=== PATIENT | male | born 1945 | race Caucasian/White ===

== ENCOUNTER 2019-06-30 16:38 | Inpatient (IN) | payer BC, OTHER ==
[2019-06-30] MEDS ORDERED: SODIUM CHLORIDE 2,585 ML IV ONE (16:50)
--- NOTE | 2019-06-30 16:57 | PDOC ---
History of Present Illness - General Chief Complaint: Respiratory Stated Complaint: COUGH, SOB History Source: Patient Exam Limitations: No Limitations - History of Present Illness Initial Comments: 73 yo M with a pmhx of CAD s/p bypass, afib (on Eliquis and ASA) prostate cancer, hypertension, and hyperlipidemia presents to the emergency department worsening dyspnea on exertion with cough and nasal congestion that have occurred concurrently. Per the patient, his symptoms began this past Thursday, appro ximately 4 days ago, and were worsening throughout the week. While walking to [facility], he became acute dyspneic with exertion and was unable to complete the journey. Per the patient, he lives by himself, denies recent travels, denies exposure to COVID-19 individuals, and denies recent sick contacts. Per the patient, he has a scheduled imaging study of his heart next week with his test analyst, but he is unaware of the study's name. Denies the following: fevers, chills, nausea, vomiting, headache, palpitations, chest pain, abdominal pain, dysuria, hematuria, diarrhea, constipation, and leg pain/swelling. Incidentally, the patient describes having a large hematochezia event 5 days ago with a normal BM over the past 2-3 days. He endorses having hemorrhoids. Allergies: NKDA Past History - Past Medical History Allergies/Adverse Reactions: Allergies Allergy/AdvReac Type Severity Reaction Status Date / Time cat dander Allergy Verified 06/30/19 16:39 Home Medications: Ambulatory Orders Atorvastatin Ca [Lipitor] 40 mg PO DAILY 03/20/12 Citalopram Hydrobromide [Celexa -] 40 mg PO DAILY 03/20/12 Ramipril 5 mg PO AM 11/03/13 Alfuzosin HCl [Uroxatral] 10 mg PO DAILY 11/21/14 Hydrochlorothiazide [Hctz -] 12.5 mg PO DAILY 11/21/14 Apixaban [Eliquis] 5 mg PO BID 11/17/17 Gluc Healy/Chondro Healy A/Vit C/Mn [Glucosamine Chondroitin Tab] 1 tab PO DAILY 07/01/19 Metoprolol Succinate 50 mg PO BID 07/01/19 Mirabegron [Myrbetriq] 25 mg PO DAILY 07/01/19 Mirtazapine [Remeron -] 7.5 mg PO HS 07/01/19 Multivitamins [Tab-A-Vit -] 1 tab PO DAILY 07/01/19 Naproxen Sodium 220 mg PO DAILY PRN MDD 220 mg 07/01/19 Pantoprazole Sodium [Protonix] 40 mg PO DAILY #40 tablet. 07/01/19 Anemia: No Asthma: No Cancer: Yes (Prostate) Cardiac Disorders: Yes (CAD) CVA: No COPD: No CHF: No Dementia: No Diabetes: No GI Disorders: No Disorders: No HTN: Yes Hypercholesterolemia: Yes Liver Disease: No Seizures: No Thyroid Disease: No - Surgical History Abdominal Surgery: No Appendectomy: No Cardiac Surgery: Yes (QUADRUPLE BYPASS) Cholecystectomy: No Lung Surgery: No Orthopedic Surgery: Yes (Bilateral Knee Arthroscopy) - Psycho Social/Smoking Cessation Hx Smoking Status: No Smoking History: Never smoked Have you smoked in the past 12 months: No Number of Cigarettes Smoked Daily: 0 Information on smoking cessation initiated: No Hx Alcohol Use: No Drug/Substance Use Hx: No Substance Use Type: Alcohol Hx Substance Use Treatment: No Review of Systems - Review of Systems Able to Perform ROS?: Yes Is the patient limited Italian proficient: No Constitutional: Yes: Weakness. No: Chills, Diaphoresis, Fever HEENTM: Yes: Nose Congestion. No: Eye Pain, Ear Pain, Nose Pain, Throat Pain Respiratory: Yes: Cough, SOB with Exertion. No: SOB at Rest, Hemoptysis Cardiac (ROS): No: Chest Pain, Lightheadedness ABD/GI: No: Constipated, Diarrhea, Nausea, Rectal Bleeding, Vomiting, Tarry Stools : No: Dysuria, Hematuria Musculoskeletal: No: Back Pain, Joint Pain, Neck Pain Integumentary: No: Bruising, Rash Neurological: No: Headache, Numbness Psychiatric: No: Change in Appetite Endocrine: No: Unexplained Weight Loss Hematologic/Lymphatic: Yes: Anemia *Physical Exam - Vital Signs Last Vital Signs Temp Pulse Resp BP Pulse Ox 98.2 F 123 H 20 88/58 L 97 06/30/19 16:38 06/30/19 16:38 06/30/19 16:38 06/30/19 16:38 06/30/19 16:38 - Physical Exam General Appearance: Yes: Nourished, Appropriately Dressed. No: Apparent Distress, Intoxicated HEENT: positive: EOMI, ERIKA, Normal Voice, Symmetrical, Pharynx Normal, Hearing Grossly Normal. negative: Pale Conjunctivae, Scleral Icterus (R), Scleral Icterus (L), Muffled/Hoarse voice, Pharyngeal Erythema, Tonsillar Exudate, Tonsillar Erythema, Nasal Congestion, Rhinorrhea, Sinus Tenderness, Excessive drooling Neck: positive: Trachea midline, Supple. negative: Tender, Lymphadenopathy (R), Lymphadenopathy (L), Tender lateral, Tender midline Respiratory/Chest: positive: Lungs Clear, Normal Breath Sounds. negative: Chest Tender, Respiratory Distress, Accessory Muscle Use Cardiovascular: positive: Regular Rhythm, S1, S2, Tachycardia. negative: Systolic Murmur Gastrointestinal/Abdominal: positive: Normal Bowel Sounds, Flat, Soft. negative: Tender Rectal Exam: positive: normal rectal tone, heme positive stool. negative: decreased tone, hemorrhoids Lymphatic: negative: Adenopathy Musculoskeletal: positive: Normal Inspection. negative: CVA Tenderness, Vertebral Tenderness Extremity: positive: Normal Capillary Refill, Normal Inspection, Normal Range of Motion. negative: Tender, Swelling, Calf Tenderness Integumentary: positive: Normal Color, Dry, Warm. negative: Swelling, Ecchymosis Neurologic: positive: Fully Oriented, Alert, Normal Mood/Affect Heart Score/ECG Review - ECG Intrepretation Comment:: NSR without ST elevation or depression noted on EKG. ED Treatment Course - LABORATORY CBC & Chemistry Diagram: 07/01/19 05:50 07/01/19 05:50 Medical Decision Making - Medical Decision Making 73 yo M with a pmhx of CAD s/p bypass, afib (on Eliquis and ASA) prostate cancer, hypertension, and hyperlipidemia presents to the emergency department worsening dyspnea on exertion with cough and nasal congestion that have occurred concurrently. Initial vitals; Initial Vital Signs Temp Pulse Resp BP Pulse Ox 98.2 F 123 H 20 88/58 L 97 06/30/19 16:38 06/30/19 16:38 06/30/19 16:38 06/30/19 16:38 06/30/19 16:38 Work up: patient presents with PETIT with concurrent cough and congestion ddx: URI vs influenza vs PNA vs ACS Patient unlikely to be a COVID-19 patient given lack of fever and known risk factors including contact with COVID-19 individuals and travel to increased incident areas. Laboratory Tests 06/30/19 06/30/19 06/30/19 16:45 16:45 16:45 WBC 7.1 RBC 2.87 L Hgb 9.2 L Hct 28.5 L D MCV 99.2 H MCH 32.1 MCHC 32.4 RDW 12.1 Plt Count 260 D MPV 7.9 Absolute Neuts (auto) 4.1 Neutrophils % 57.3 Lymphocytes % 20.5 Monocytes % 17.2 H Eosinophils % 4.4 Basophils % 0.6 PT with INR INR VBG pH 7.42 H POC VBG pCO2 40.7 POC VBG pO2 < 49 H VBG HCO3 26.2 VBG O2 Sat (Lyn) 71.7 VBG Base Excess 2.1 H Sodium 137 Potassium 4.1 Chloride 100 Carbon Dioxide 26 Anion Gap 11 BUN 21.0 H Creatinine 1.2 Est GFR (CKD-EPI)AfAm 68.63 Est GFR (CKD-EPI)NonAf 59.21 Random Glucose 109 H Calcium 9.0 Total Bilirubin 1.1 H AST 39 H ALT 22 Alkaline Phosphatase 49 Troponin I Total Protein 6.9 Albumin 3.8 Stool Occult Blood 06/30/19 06/30/19 06/30/19 16:45 17:45 18:10 WBC RBC Hgb Hct MCV MCH MCHC RDW Plt Count MPV Absolute Neuts (auto) Neutrophils % Lymphocytes % Monocytes % Eosinophils % Basophils % PT with INR 16.9 H INR 1.52 H VBG pH POC VBG pCO2 POC VBG pO2 VBG HCO3 VBG O2 Sat (Lyn) VBG Base Excess Sodium Potassium Chloride Carbon Dioxide Anion Gap BUN Creatinine Est GFR (CKD-EPI)AfAm Est GFR (CKD-EPI)NonAf Random Glucose Calcium Total Bilirubin AST ALT Alkaline Phosphatase Troponin I 0.63 H* Total Protein Albumin Stool Occult Blood Positive Patient has positive occult blood troponin 0.63. hemoglobin 9.2, which is significantly lower than his previous lab value 2 years ago The patient was given aspirin 325 mg and atorvastatin 80 mg. A call was placed to cardiology director cloud transformation by community outreach coordinator at approximately 6:25 pm with another call placed out at approximately 6:52 pm. The answering service accepted the call and stated they would relay the information to cardiology. The patient is currently on eliquis, thus will not need heparin for anti- coagulation. Patient to be signed out to Dr. Noel for further care and management. Patient was accepted for admission to [facility] under Dr. Mahoney. 06/30/19 19:06 06/30/19 19:18 Spoke to cardiology. They state that the patient should have all anticoagulation withheld. Advises for echo to be ordered for AM immediately so that it is done and to have q6hr on troponin x2. Patient was endorses to [facility] and accepted for admission The patient to be admitted to telemetry for NSTEMI with lower rectal bleed. EKG: NSR without ST elevations or depressions. incomplete RBBB. CXR without acute process noted. Discharge - Discharge Information Problems reviewed: Yes Clinical Impression/Diagnosis: NSTEMI (non-ST elevated myocardial infarction) Anemia Qualifiers: Anemia type: unspecified type Qualified Code(s): D64.9 - Anemia, unspecified - Follow up/Referral - Patient Discharge Instructions - Post Discharge Activity
--- NOTE | 2019-06-30 17:06 | PDOC ---
Attending Attestation - Resident Resident Name: Jas Velez - ED Attending Attestation I have performed the following: I have examined & evaluated the patient, The case was reviewed & discussed with the resident, I agree w/resident's findings & plan - HPI HPI: 06/30/19 17:06 73 year old male with a significant past medical history of CAD s/p bypass, afib (on Eliquis and ASA) prostate cancer, hypertension, and hyperlipidemia who prese nts to the emergency department p/w progressive dyspnea on exertion, cough and congestion, generalized weakness x 4 days, beginning Thursday yesterday he went to [place] [facility] office for his appt, he was walking and got easily short of breath, which has not occurred previously. no known sick contacts or travel no covid 19 risk factors 06/30/19 17:56 06/30/19 18:04 - Physicial Exam PE: 06/30/19 17:06 Agree with the resident's HPI and PE as documented in the electronic medical record. NAD, malaised appearing, EOMI, PERRL, nl conjunctiva, anicteric; neck supple. lungs clear, +tachycardic, abdomen soft nontender. no rebound, guarding. Back nontender. FAULKNER x4, no focal neuro deficits. No peripheral edema. pale color for ethnicity, WWP. rectal exam by resident 06/30/19 17:59 - Critical Care Time Total Critical Care Time: 30 (NSTEMI) Critical Care Statement: The care of this patient involved high complexity decision making to prevent further life threatening deterioration of the patient's condition and/or to evaluate & treat vital organ system(s) failure or risk of failure. - Medical Decision Making 06/30/19 17:06 Vital Signs Temp Pulse Resp BP Pulse Ox 98.2 F 123 H 20 88/58 L 97 06/30/19 16:38 06/30/19 16:38 06/30/19 16:38 06/30/19 16:38 06/30/19 16:38 Vital signs notable for hypotension tachycardia, no fever orally. No respiratory distress, saturations 97% on room air not septic - no fever rectally here recheck VS. 06/30/19 18:02 ddx. ACS, arrhythmia, PE, dehydration, flu, pna, viral syndrome, GIB, anemia, electrolyte/metabolic derangements. Laboratory results reviewed, no WBC count. However acute anemia is noted, hemoglobin is 9.2, hematocrit is 28.5. Troponin is 0.63, EKG is nonspecific T wave abnormalities, no ST elevations or depressions +trop 0.6- serial trop/area attendant. 06/30/19 18:03 bp improved no longer tachy sinus rhythm here admit to [facility] for NSTEMI/anemia. ASA given no AC as pt already on eliquis, risk of bleeding transfer to [facility] for admit, s/o to Dr Mahoney pt made aware of impression and plan, agreeable with admission, cards cs, serial trop/EKG. CTA recommended, as pt states he has "dilated artery" but unclear location- planned for CT imaging in 1.5 weeks. pt mentioned this detail upon reevaluation at this time. 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 06/30/19 19:14 06/30/19 19:[address] Blank recommended dc'ing eliquis heparin for AC gtt, hold for now serial trop x3, ekg/tele echo in the AM, order now. Heart Score/ECG Review #1 ECG reviewed & interpreted by me at: 17:45 General ECG Interpretation: Sinus Rhythm, Normal Rate, Normal Intervals 06/30/19 18:51 EKG normal sinus rhythm 63 bpm, no interval abnormalities, narrow QRS, ST and T wave segments and morphology normal. Nonspecific T wave abnormalities Discharge - Discharge Information Problems reviewed: Yes Clinical Impression/Diagnosis: NSTEMI (non-ST elevated myocardial infarction) Anemia Qualifiers: Anemia type: unspecified type Qualified Code(s): D64.9 - Anemia, unspecified Condition: Guarded Disposition: AGAINST MEDICAL ADVICE - Admission Yes - Follow up/Referral - Patient Discharge Instructions - Post Discharge Activity
[2019-06-30 17:40] LABS: BASO % 0.6 % (0-2.0); EOS % 4.4 % (0-4.5); HEMATOCRIT 28.5 % (35.4-49); HEMOGLOBIN 9.2 GM/dl (11.7-16.9); LYMPH % 20.5 % (8-40); MCH 32.1 pg (25.7-33.7); MCHC 32.4 g/dl (32.0-35.9); MEAN CELL VOLUME 99.2 fl (80-96); MEAN PLT VOLUME 7.9 fl (7.5-11.1); MONO % 17.2 % (3.8-10.2); NEUT % 57.3 % (42.8-82.8); PLATELET COUNT 260 K/MM3 (134-434); RBC 2.87 M/mm3 (4.00-5.60); RDW 12.1 % (11.9-15.9); WHITE BLOOD COUNT 7.1 K/mm3 (4.0-10.8)
[2019-06-30 17:56] LABS: ALBUMIN 3.8 g/dl (3.4-5.0); BILIRUBIN,TOTAL 1.1 mg/dl (0.2-1); CREATININE 1.2 mg/dl (0.55-1.3); POTASSIUM 4.1 mmol/L (3.5-5.1); TOT PROT 6.9 g/dl (6.4-8.2)
[2019-06-30 18:13] LABS: INR 1.52 (0.82-1.09); PROTHROMBIN TIME (PATIENT) 16.9 SEC (10.2-13.0)
[2019-06-30] MEDS ORDERED: ATORVASTATIN CA 80 MG TABLET (FP) PO ONE (18:14)
[2019-06-30] MEDS ORDERED: ASPIRIN 325 MG TABLET PO ONE (18:14)
[2019-06-30] MEDS ORDERED: ASPIRIN 325 MG TABLET ONE (18:28)
[2019-06-30] MEDS ORDERED: ATORVASTATIN CA 80 MG TABLET (FP) ONE (18:28)
[2019-06-30 18:36] LABS: VENOUS PC02 40.7 mmHg (38-52); VENOUS PH 7.42 (7.31-7.41)
[2019-06-30 18:46] LABS: VENOUS PO2 < 49 mmHg (28-48)
--- NOTE | 2019-06-30 19:53 | HP ---
CHIEF COMPLAINT: dyspnea on exertion PCP: Dr. Ivan HISTORY OF PRESENT ILLNESS: 73M w/ pmhx of CAD s/p bypass, afib (on Eliquis), prostate cancer (s/p RT now in remission), HTN/HLD presents to the ED for complaints of worsening dyspnea on exertion with cough and nasal congestion that have occurred concurrently. States he started noticing his symptoms on Thursday as he was walking up a hill to get into his house even though he was able to do this daily with no problem in the past. Also admits to generalized weakness x4 days. Of note, he states these symptoms started a day after having profuse bright red bloody diarrhea on Thursday. Says the bleeding started during the day and carried onto the night. Admits to hx of hemorrhoids in the past with bloody stool, but not as bad as Thursday's episode. Denies hx of anemia or ever needing blood transfusion in the past. On Thursday, he took an anti-diarrheal medication after which he hadn't had a bowel movement until today. Last BM today was normal brown stool, but 40 min later he had another episode of bright red diarrhea. Last colonoscopy was 2+ years ago that was negative, per patient. States he's gotten 3 total colonoscopies in the past - 2nd colonoscopy polyps were removed, but were apparent benign. 3rd colonoscopy, he had a hx of bloody stools, but he was told it was due to his hemorrhoids. Last endoscopy was also 2+ years ago at that same time after which he was told to take Prilosec. His GI doctor is Dr. Rush Cuevas ([facility]) He was started on Eliquis after his most recent endoscopy/colonoscopy for afib by his [employer] officer, Dr. Nelson. ER course was notable for: (1) Afebrile, HR 123, BP 88/58 --> 105/68, 99% RA (2) H/H 9.2/28.5, Lac 2.2, TBili 1.2, AST/ALT 39/22, Trop 0.63. FOBT+ (3) ASA 325, Lipitor 80, NS given in ED. Cardio consulted. Recent Travel: Denies PAST MEDICAL HISTORY: As per HPI PAST SURGICAL HISTORY: CABG b/l arthroscopic knee sinus surgeries b/l cataract sx FAMILY HISTORY: Mother- breast cancer w/ lung mets Father- kidney ca Brother- prostate ca Brother- CAD No fam hx of VT/stroke Social History: Smoking: Former smoker, quit 1978 Alcohol: Drinks ~2-3 glasses of vodka on the weekends Drugs: Denies Allergies cat dander Allergy (Verified 06/30/19 16:39) HOME MEDICATIONS: Home Medications - RECONCILED Generic Name Dose Route Start Last Admin Trade Name Freq PRN Reason Stop Dose Admin Atorvastatin Calcium 40 mg 07/01/19 00:31 Lipitor - PO HS AZUL Citalopram Hydrobromide 40 mg 07/01/19 10:00 Celexa - PO DAILY AZUL Hydrochlorothiazide 12.5 mg 07/01/19 10:00 Hctz - PO DAILY [facility] Metoprolol Succinate 50 mg 07/01/19 01:15 07/01/19 01:00 Toprol Xl - PO 50 mg BID AZUL Administration Mirtazapine 7.5 mg 07/01/19 01:06 07/01/19 01:49 Remeron - PO 7.5 mg HS [facility] Administration Non-Formulary Medication 25 mg 07/01/19 01:06 Mirabegron [Myrbetriq] PO DAILY [facility] Ramipril 5 mg 07/01/19 07:00 Altace - PO AM [facility] Tamsulosin HCl 0.4 mg 07/01/19 08:30 Flomax - PO DAILY@0830 [facility] REVIEW OF SYSTEMS CONSTITUTIONAL: generalized weakness Absent: fever, chills, diaphoresis, , malaise, loss of appetite, weight change HEENT: Absent: rhinorrhea, nasal congestion, throat pain, throat swelling, difficulty swallowing, mouth swelling, ear pain, eye pain, visual changes CARDIOVASCULAR: Absent: chest pain, syncope, palpitations, irregular heart rate, lightheadedness, peripheral edema RESPIRATORY: cough, shortness of breath, dyspnea with exertion Absent: orthopnea, wheezing, stridor, hemoptysis GASTROINTESTINAL: hematochezia Absent: abdominal pain, abdominal distension, nausea, vomiting, diarrhea, constipation, melena, GENITOURINARY: Absent: dysuria, frequency, urgency, hesitancy, hematuria, flank pain, genital pain MUSCULOSKELETAL: Absent: myalgia, arthralgia, joint swelling, back pain, neck pain SKIN: Absent: rash, itching, pallor HEMATOLOGIC/IMMUNOLOGIC: Absent: easy bleeding, easy bruising, lymphadenopathy, frequent infections ENDOCRINE: Absent: unexplained weight gain, unexplained weight loss, heat intolerance, cold intolerance NEUROLOGIC: Absent: headache, focal weakness or paresthesias, dizziness, unsteady gait, seizure, mental status changes, bladder or bowel incontinence PSYCHIATRIC: Absent: anxiety, depression, suicidal or homicidal ideation, hallucinations. PHYSICAL EXAMINATION Vital Signs - 24 hr 06/30/19 06/30/19 16:38 18:03 Temperature 98.2 F 98.3 F Pulse Rate 123 H Pulse Rate [ 64 Left Apical] Respiratory 20 18 Rate Blood Pressure 88/58 L Blood Pressure 105/68 [Left Arm] O2 Sat by Pulse 97 99 Oximetry (%) GENERAL: Pleasant, well-appearing male. NAD. AAOx3. HEENT: AT/NC. EOMI. MMM. NECK: Normal range of motion, supple without lymphadenopathy, JVD, or masses. LUNGS: CTA B/L. No wheezes or rales noted. Symmetric chest rise. HEART: RRR. Normal S1, S2. No murmurs noted. ABDOMEN: Soft, NT/ND. Normoactive bowel sounds in all 4Qs. GI: No palpable internal/external hemorrhoids on ASHANTI. No bloody stool noted. Normal rectal tone. MUSCULOSKELETAL: Normal range of motion at all joints. No bony deformities or tenderness. No CVA tenderness. EXTREMITIES: 1+ pitting edema noted on b/l extremities. 2+ dorsalis pedis pulses. NEUROLOGICAL: Cranial nerves II-XII intact. Normal speech. PSYCHIATRIC: Cooperative. Good eye contact. Appropriate mood and affect. SKIN: Warm, dry, normal turgor, no rashes or lesions noted, normal capillary refill. CBCD WBC 7.1 K/mm3 (4.0-10.8) 06/30/19 16:45 RBC 2.87 M/mm3 (4.00-5.60) L 06/30/19 16:45 Hgb 9.2 GM/dl (11.7-16.9) L 06/30/19 16:45 Hct 28.5 % (35.4-49) L D 06/30/19 16:45 MCV 99.2 fl (80-96) H 06/30/19 16:45 MCHC 32.4 g/dl (32.0-35.9) 06/30/19 16:45 RDW 12.1 % (11.9-15.9) 06/30/19 16:45 Plt Count 260 K/MM3 (134-434) D 06/30/19 16:45 MPV 7.9 fl (7.5-11.1) 06/30/19 16:45 CMP Sodium 137 mmol/L (136-145) 06/30/19 16:45 Potassium 4.1 mmol/L (3.5-5.1) 06/30/19 16:45 Chloride 100 mmol/L (98-107) 06/30/19 16:45 Carbon Dioxide 26 mmol/L (21-32) 06/30/19 16:45 Anion Gap 11 MMOL/L (8-16) 06/30/19 16:45 BUN 21.0 mg/dl (7-18) H 06/30/19 16:45 Creatinine 1.2 mg/dl (0.55-1.3) 06/30/19 16:45 Calcium 9.0 mg/dl (8.5-10) 06/30/19 16:45 Total Bilirubin 1.1 mg/dl (0.2-1) H 06/30/19 16:45 AST 39 U/L (15-37) H 06/30/19 16:45 ALT 22 U/L (13-61) 06/30/19 16:45 Alkaline Phosphatase 49 U/L (45-117) 06/30/19 16:45 Total Protein 6.9 g/dl (6.4-8.2) 06/30/19 16:45 Albumin 3.8 g/dl (3.4-5.0) 06/30/19 16:45 ASSESSMENT/PLAN: 73M w/ pmhx of CAD s/p bypass, afib (on Eliquis), prostate cancer (s/p RT now in remission), HTN/HLD presents to the ED for complaints of worsening dyspnea on exertion with cough admitted for tropinemia, r/o ACS #Tropinemia; likely 2/2 ? NSTEMI vs. demand ischemia, r/o ACS -No active chest pain. EKG showed NSR, QTc 503 ms, no ST-T changes or TWI -Initial trops 0.63 --> 0.77; cont to trend Q6H until peak -ASA 325, Lipitor 80 given in ED -Cardiology consulted; recommend to hold home Eliquis. Will decide on starting heparin gtt in AM as pt's tropinemia is likely demand. -Echo ordered -tele monitoring #Anemia; likely 2/2 GI bleed. No known hx of anemia. -FOBT positive, Hgb 9.2 --> 8.4; cont to trend CBC and transfuse PRN if Hgb <8 -Hold home Eliquis in setting of GI bleed -GI consulted -Iron studies #Afib; Rate-controlled and currently in NSR. HR 65 -Hold home Eliquis given GI bleed Cont home med: Metoprolol Succinate 50 BID #Hx of CAD; s/p CABG #Prostate Ca; s/p radiation therapy, now in remission. Outpatient urology follow up. Cont home med: Myrbetriq 25, Uroxatral 10 #HTN/HLD; Cont home med: Lipitor 40, Metoprolol Succinate 50 BID, HCTZ 12.5 QD, Ramipril 5, #Ppx DVT: SCDs GI: Protonix 40 BID IVP #FEN -no IVf -recheck lytes in AM -NPO Dispo -admit to tele Visit type - Emergency Visit Emergency Visit: Yes ED Registration Date: 06/30/19 Care time: The patient presented to the Emergency Department on the above date and was hospitalized for further evaluation of their emergent condition. - New Patient This patient is new to me today: Yes Date on this admission: 07/01/19 - Critical Care Critical Care patient: No ATTENDING PHYSICIAN STATEMENT I saw and evaluated the patient. I reviewed the resident's note and discussed the case with the resident. I agree with the resident's findings and plan as documented. SUBJECTIVE: OBJECTIVE: ASSESSMENT AND PLAN:
--- NOTE | 2019-06-30 20:27 | PN ---
Teaching Attending Note Name of Resident: Dominique Alicea ATTENDING PHYSICIAN STATEMENT I saw and evaluated the patient. I reviewed the resident's note and discussed the case with the resident. I agree with the resident's findings and plan as documented. SUBJECTIVE: Patient transferred from [facility] ER to [facility]. He is a 73 year old man with a PMH of CAD s/p bypass, Afib (on Eliquis and ASA), Prostate cancer, Hypertension, and Hyperlipidemia who presented to [facility] ER with worsening dyspnea on exertion, cough and nasal congestion for about 4 days. While walking to [facility] dental offices, he became acute dyspneic with exertion and was unable to complete the journey. He lives alone, denies recent travels, denies exposure to COVID-19 individuals, and denies recent sick contacts. He has a scheduled imaging study of his heart next week with his cyber intelligence analyst, but he is unaware of the study's name. Denies fevers, chills, nausea, vomiting, headache, palpitations, chest pain, abdominal pain, dysuria, hematuria, diarrhea, constipation, and leg pain/swelling. Incidentally, the patient describes having a large hematochezia event 5 days ago with a normal BM over the past 2-3 days. Says he has hemorrhoids. Denies alcohol, tobacco or illicit drug use. No sick contacts or recent travels. Upon arrival at [facility] he offers no symptoms and is in no acute distress. The staff at [facility] ER discussed his care with a cyber intelligence analyst after elevated troponin was noted. OBJECTIVE: Alert Vital Signs Period Temp Pulse Resp BP Sys/Rios Pulse Ox Last 24 Hr 97.8 F-98.4 F 61-123 18-20 88-132/54-82 96-99 HEENT: No Jaundice, eye redness or discharge, PERRLA, EOMI. Normocephalic, atraumatic. External ears are normal and hearing is grossly intact. No nasal discharge. Neck: Supple, nontender. No palpable adenopathy or thyromegaly. No JVD Chest: Good effort. Clear to auscultation and percussion. Heart: Regular. No S3, rub or murmur Abdomen: Not distended, soft, nontender and no HSM. No rebound or guarding. Normal bowel sounds. Ext: Peripheral pulses intact. No leg edema. No hemorrhoids noted on rectal exam. Skin: Warm and dry. No petechiae, rash or ecchymosis. Neuro: Alert. Oriented x3. CN 2-12 grossly intact. Sensation grossly intact in all four extremities and DTR are symmetric. Psych: Appropriate mood and affect. Good insight. Current Medications Generic Name Dose Route Start Last Admin Trade Name Freq PRN Reason Stop Dose Admin Atorvastatin Calcium 40 mg 07/01/19 00:31 Lipitor - PO HS [facility] Citalopram Hydrobromide 40 mg 07/01/19 10:00 Celexa - PO DAILY [facility] Hydrochlorothiazide 12.5 mg 07/01/19 10:00 Hctz - PO DAILY [facility] Metoprolol Succinate 50 mg 06/30/19 23:45 Toprol Xl - PO BID [facility] Mirtazapine 7.5 mg 07/01/19 00:31 Remeron - PO HS [facility] Non-Formulary Medication 25 mg 07/01/19 00:31 Mirabegron [Myrbetriq] PO DAILY [facility] Pantoprazole Sodium 40 mg 07/01/19 00:31 Protonix - PO BID [facility] Ramipril 5 mg 07/01/19 07:00 Altace - PO AM [facility] Tamsulosin HCl 0.4 mg 07/01/19 08:30 Flomax - PO DAILY@0830 [facility] Home Medications Medication Instructions Recorded Atorvastatin Ca [Lipitor] 40 mg PO DAILY 03/20/12 Citalopram Hydrobromide [Celexa -] 40 mg PO DAILY 03/20/12 Mirtazapine [Remeron -] 7.5 mg PO HS 11/03/13 Ramipril 5 mg PO AM 11/03/13 Alfuzosin HCl [Uroxatral] 10 mg PO DAILY 11/21/14 Hydrochlorothiazide [Hctz -] 12.5 mg PO DAILY 11/21/14 Mirabegron [Myrbetriq] 25 mg PO DAILY 11/21/14 Apixaban [Eliquis] 5 mg PO BID 11/17/17 Metoprolol Succinate 50 mg PO BID 06/30/19 Abnormal Lab Results 06/30/19 06/30/19 06/30/19 16:45 16:45 16:45 RBC 2.87 L Hgb 9.2 L Hct 28.5 L D MCV 99.2 H Monocytes % 17.2 H PT with INR INR VBG pH 7.42 H POC VBG pO2 < 49 H VBG Base Excess 2.1 H BUN 21.0 H Random Glucose 109 H Lactic Acid Total Bilirubin 1.1 H AST 39 H Troponin I 06/30/19 06/30/19 06/30/19 16:45 16:45 17:45 RBC Hgb Hct MCV Monocytes % PT with INR 16.9 H INR 1.52 H VBG pH POC VBG pO2 VBG Base Excess BUN Random Glucose Lactic Acid 2.2 H* Total Bilirubin AST Troponin I 0.63 H* 07/01/19 00:05 RBC Hgb Hct MCV Monocytes % PT with INR INR VBG pH POC VBG pO2 VBG Base Excess BUN Random Glucose Lactic Acid Total Bilirubin AST Troponin I 0.77 H* ASSESSMENT AND PLAN: 1. NSTEMI?/GI bleeding - Initial troponin was elevated but EKG showed NSR with rate of 63/minute and no significant ST-T wave changes. Stool guaiac was positive, but no fresh blood noted on rectal examination. No acute abnormality on CXR. Cardiology consulted - more likely demand ischemia. Will trend troponin and get ECHO. Hold Eliquis for bleeding and monitor HCT q 6 hours. Will continue comprehensive care for all of patients comorbid conditions. 2. Hypertension - Restart suitable outpatient antihypertensive drugs when clinically appropriate. Revise regimen to ensure [id number] excellent BP control and group counselor patient on the injurious effects of uncontrolled hypert ension. Nonpharmacologic measures to control hypertension like weight loss, salt restriction and exercise discussed. Importance of adherence to treatment regimen and attainment of normotension emphasized. 3. DVT prophylaxis - SCD 4. Advance directives - Full code
[2019-07-01 00:25] VITALS: BMI 27.5
[2019-07-01] MEDS ORDERED: PATIENT'S OWN MEDICATION (NON-FORMULARY) (Mirabegron [Myrbetriq] 25 MG) PO SCH ×3 (00:31→10:00)
[2019-07-01] MEDS ORDERED: PANTOPRAZOLE 40 MG TABLET PO SCH ×2 (00:31→10:00)
[2019-07-01] MEDS ORDERED: MIRTAZAPINE 15 MG TABLET (FP) PO SCH ×3 (00:31→22:00)
[2019-07-01] MEDS ORDERED: ATORVASTATIN CA 40 MG TABLET (FP) PO SCH ×2 (00:31→22:00)
[2019-07-01 01:36] LABS: HEMATOCRIT 24.5 % (35.4-49); HEMOGLOBIN 8.4 GM/dL (11.7-16.9); MCH 33.9 pg (25.7-33.7); MCHC 34.2 g/dl (32.0-35.9); MEAN PLT VOLUME 8.1 fl (7.5-11.1); PLATELET COUNT 198 K/MM3 (134-434); RBC 2.48 M/mm3 (4.00-5.60); RDW 12.9 % (11.9-15.9)
[2019-07-01 06:59] LABS: BASO % 0.5 % (0-2.0); EOS % 5.9 % (0-4.5); HEMATOCRIT 24.6 % (35.4-49); HEMOGLOBIN 8.2 GM/dL (11.7-16.9); LYMPH % 23.6 % (8-40); MCH 33.3 pg (25.7-33.7); MCHC 33.4 g/dl (32.0-35.9); MEAN CELL VOLUME 99.5 fl (80-96); MEAN PLT VOLUME 8.1 fl (7.5-11.1); MONO % 15.5 % (3.8-10.2); NEUT % 54.5 % (42.8-82.8); PLATELET COUNT 199 K/MM3 (134-434); RBC 2.48 M/mm3 (4.00-5.60); RDW 13.3 % (11.9-15.9); WHITE BLOOD COUNT 6.4 K/mm3 (4.0-10.0)
[2019-07-01] MEDS ORDERED: RAMIPRIL 5 MG CAPSULE (FP) PO SCH (07:00)
[2019-07-01 07:26] LABS: ALBUMIN 2.9 g/dl (3.4-5.0); BILIRUBIN,TOTAL 0.9 mg/dL (0.2-1); BLOOD UREA NITROGEN 16.7 mg/dL (7-18); MAGNESIUM 1.7 mg/dL (1.8-2.4); POTASSIUM 3.4 mmol/L (3.5-5.1); TOT PROT 5.8 g/dl (6.4-8.2)
[2019-07-01] MEDS ORDERED: TAMSULOSIN HCL 0.4 MG CAP PO SCH (08:30)
[2019-07-01] MEDS ORDERED: POTASSIUM CHLORIDE TABS 20 MEQ TABLET.ER (FP) PO ONE (08:48)
[2019-07-01] MEDS ORDERED: MAGNESIUM SULF 50% (8.12 MEQ/2 ML-1 GM VIAL) IVPB ONE ×2 (08:48→11:02)
--- NOTE | 2019-07-01 09:05 | PN ---
Physical Exam: SUBJECTIVE: Patient seen and examined at bedside. Reports that he has been feeling fatigued for around 1 week with reported dyspnea on exertion. States that he has had several episodes of bloody bowel movements over the course of this week starting Thursday. Last episode being yesterday. Patient told me he had a colonoscopy around 2 years ago and that he has known hemorrhoids. He was told he had bleeding hemorrhoids in the past. Currently denies chest pain, SOB, nausea, vomiting, diarrhea, fevers, chills. Patient does endorse a mild non-productive cough. OBJECTIVE: Vital Signs Period Temp Pulse Resp BP Sys/Rios Pulse Ox Last 24 Hr 97.8 F-98.4 F 59-123 16-20 88-132/54-82 96-99 GENERAL: A&Ox3, no acute distress EYES: PERRLA, EOMI ENT: Moist mucus membranes, oropharynx normal without erythema LUNGS: CTA, no wheezes HEART: RRR, no murmurs ABDOMEN: Soft, nontender, BS present EXTREMITIES: 2+ pulses, no edema. NEUROLOGICAL: Cranial nerves II-XII intact. No focal deficits noted on exam. Laboratory Results - last 24 hr 06/30/19 06/30/19 06/30/19 16:45 16:45 16:45 WBC 7.1 RBC 2.87 L Hgb 9.2 L Hct 28.5 L D MCV 99.2 H MCH 32.1 MCHC 32.4 RDW 12.1 Plt Count 260 D MPV 7.9 Absolute Neuts (auto) 4.1 Neutrophils % 57.3 Lymphocytes % 20.5 Monocytes % 17.2 H Eosinophils % 4.4 Basophils % 0.6 Nucleated RBC % PT with INR INR VBG pH 7.42 H POC VBG pCO2 40.7 POC VBG pO2 < 49 H VBG HCO3 26.2 VBG O2 Sat (Lyn) 71.7 VBG Base Excess 2.1 H Sodium 137 Potassium 4.1 Chloride 100 Carbon Dioxide 26 Anion Gap 11 BUN 21.0 H Creatinine 1.2 Est GFR (CKD-EPI)AfAm 68.63 Est GFR (CKD-EPI)NonAf 59.21 Random Glucose 109 H Lactic Acid Calcium 9.0 Phosphorus Magnesium Iron TIBC Iron Saturation Unsaturated IBC Ferritin Total Bilirubin 1.1 H AST 39 H ALT 22 Alkaline Phosphatase 49 Troponin I Total Protein 6.9 Albumin 3.8 Vitamin B12 Serum Folate Stool Occult Blood Influenza A (Rapid) Influenza B (Rapid) Blood Type Antibody Screen 06/30/19 06/30/19 06/30/19 16:45 16:45 17:30 WBC RBC Hgb Hct MCV MCH MCHC RDW Plt Count MPV Absolute Neuts (auto) Neutrophils % Lymphocytes % Monocytes % Eosinophils % Basophils % Nucleated RBC % PT with INR INR VBG pH POC VBG pCO2 POC VBG pO2 VBG HCO3 VBG O2 Sat (Lyn) VBG Base Excess Sodium Potassium Chloride Carbon Dioxide Anion Gap BUN Creatinine Est GFR (CKD-EPI)AfAm Est GFR (CKD-EPI)NonAf Random Glucose Lactic Acid 2.2 H* Calcium Phosphorus Magnesium Iron TIBC Iron Saturation Unsaturated IBC Ferritin Total Bilirubin AST ALT Alkaline Phosphatase Troponin I 0.63 H* Total Protein Albumin Vitamin B12 Serum Folate Stool Occult Blood Influenza A (Rapid) Negative Influenza B (Rapid) Negative Blood Type Antibody Screen 06/30/19 06/30/19 06/30/19 17:45 18:10 18:20 WBC RBC Hgb Hct MCV MCH MCHC RDW Plt Count MPV Absolute Neuts (auto) Neutrophils % Lymphocytes % Monocytes % Eosinophils % Basophils % Nucleated RBC % PT with INR 16.9 H INR 1.52 H VBG pH POC VBG pCO2 POC VBG pO2 VBG HCO3 VBG O2 Sat (Lyn) VBG Base Excess Sodium Potassium Chloride Carbon Dioxide Anion Gap BUN Creatinine Est GFR (CKD-EPI)AfAm Est GFR (CKD-EPI)NonAf Random Glucose Lactic Acid Calcium Phosphorus Magnesium Iron TIBC Iron Saturation Unsaturated IBC Ferritin Total Bilirubin AST ALT Alkaline Phosphatase Troponin I Total Protein Albumin Vitamin B12 Serum Folate Stool Occult Blood Positive Influenza A (Rapid) Influenza B (Rapid) Blood Type A POSITIVE Antibody Screen Negative 06/30/19 06/30/19 07/01/19 18:22 20:45 00:05 WBC RBC Hgb Hct MCV MCH MCHC RDW Plt Count MPV Absolute Neuts (auto) Neutrophils % Lymphocytes % Monocytes % Eosinophils % Basophils % Nucleated RBC % PT with INR INR VBG pH POC VBG pCO2 POC VBG pO2 VBG HCO3 VBG O2 Sat (Lyn) VBG Base Excess Sodium Potassium Chloride Carbon Dioxide Anion Gap BUN Creatinine Est GFR (CKD-EPI)AfAm Est GFR (CKD-EPI)NonAf Random Glucose Lactic Acid 1.0 Calcium Phosphorus Magnesium Iron TIBC Iron Saturation Unsaturated IBC Ferritin Total Bilirubin AST ALT Alkaline Phosphatase Troponin I 0.77 H* Total Protein Albumin Vitamin B12 Serum Folate Stool Occult Blood Influenza A (Rapid) Influenza B (Rapid) Blood Type A POSITIVE Antibody Screen 07/01/19 07/01/19 07/01/19 00:05 05:50 05:50 WBC 7.0 6.4 RBC 2.48 L 2.48 L Hgb 8.4 L 8.2 L Hct 24.5 L 24.6 L MCV 99.0 H 99.5 H MCH 33.9 H 33.3 MCHC 34.2 33.4 RDW 12.9 13.3 Plt Count 198 199 MPV 8.1 8.1 Absolute Neuts (auto) 3.5 Neutrophils % 54.5 Lymphocytes % 23.6 Monocytes % 15.5 H Eosinophils % 5.9 H Basophils % 0.5 Nucleated RBC % 0 PT with INR INR VBG pH POC VBG pCO2 POC VBG pO2 VBG HCO3 VBG O2 Sat (Lyn) VBG Base Excess Sodium 141 Potassium 3.4 L Chloride 107 Carbon Dioxide 25 Anion Gap 9 BUN 16.7 Creatinine 1.0 Est GFR (CKD-EPI)AfAm 85.55 Est GFR (CKD-EPI)NonAf 73.82 Random Glucose 81 Lactic Acid Calcium 8.0 L Phosphorus 4.0 Magnesium 1.7 L Iron TIBC Iron Saturation Unsaturated IBC Ferritin Total Bilirubin 0.9 AST 30 ALT 21 Alkaline Phosphatase 49 Troponin I Total Protein 5.8 L Albumin 2.9 L Vitamin B12 Serum Folate Stool Occult Blood Influenza A (Rapid) Influenza B (Rapid) Blood Type Antibody Screen 07/01/19 07/01/19 07/01/19 05:50 05:50 05:50 WBC RBC Hgb Hct MCV MCH MCHC RDW Plt Count MPV Absolute Neuts (auto) Neutrophils % Lymphocytes % Monocytes % Eosinophils % Basophils % Nucleated RBC % PT with INR INR VBG pH POC VBG pCO2 POC VBG pO2 VBG HCO3 VBG O2 Sat (Lyn) VBG Base Excess Sodium Potassium Chloride Carbon Dioxide Anion Gap BUN Creatinine Est GFR (CKD-EPI)AfAm Est GFR (CKD-EPI)NonAf Random Glucose Lactic Acid Calcium Phosphorus Magnesium Iron 45 L TIBC 292 Iron Saturation 15 L Unsaturated IBC 247 Ferritin 52.5 Total Bilirubin AST ALT Alkaline Phosphatase Troponin I 0.61 H* Total Protein Albumin Vitamin B12 436 Serum Folate 30 H Stool Occult Blood Influenza A (Rapid) Influenza B (Rapid) Blood Type Antibody Screen Active Medications Generic Name Dose Route Start Last Admin Trade Name Freq PRN Reason Stop Dose Admin Atorvastatin Calcium 40 mg 07/01/19 00:31 Lipitor - PO HS [facility] Citalopram Hydrobromide 40 mg 07/01/19 10:00 Celexa - PO DAILY [facility] Hydrochlorothiazide 12.5 mg 07/01/19 10:00 Hctz - PO DAILY [facility] Magnesium Sulfate 1 gm 07/01/19 08:48 Magnesium Sulfate IVPB 07/01/19 08:49 ONCE ONE Metoprolol Succinate 50 mg 07/01/19 01:15 07/01/19 01:00 Toprol Xl - PO 50 mg BID [facility] Administration Mirtazapine 7.5 mg 07/01/19 01:06 07/01/19 01:49 Remeron - PO 7.5 mg HS [facility] Administration Non-Formulary Medication 25 mg 07/01/19 01:06 Mirabegron [Myrbetriq] PO DAILY [facility] Pantoprazole Sodium 40 mg 07/01/19 10:00 Protonix Iv IVPUSH BID [facility] Potassium Chloride 40 meq 07/01/19 08:48 K-Dur - PO 07/01/19 08:49 ONCE ONE Ramipril 5 mg 07/01/19 07:00 07/01/19 06:36 Altace - PO 5 mg AM [facility] Administration Tamsulosin HCl 0.4 mg 07/01/19 08:30 Flomax - PO DAILY@0830 [facility] ASSESSMENT/PLAN: This is a 73 year old male with a history of coronary artery disease s/p 4 vessel CABG, atrial fibrillation on eliquis, prostate cancers s/p radiation therapy 7-8 years ago, hypertension and hyperlipidemia who presented to the ED with fatigue, dyspnea on exertion, and hematochezia #Lower Gastrointestinal Bleed: likely hemorrhoidal source as per patient history, however patient is now anemic with signs of cardiac demand ischemia -last colonoscopy 2 years ago, history of hemorrhoids -keep NPO except sips of water with meds -hold anticoagulation at present moment -would opt to keep transfusion threshold >8g/dl as patient has concomitant stable coronary artery disease -lactated ringers @ 100cc/hr 1 bag for volume -GI consulted, plan for endoscopy thursday -hold eliquis for now -continue to monitor hgb once today and again tomorrow AM -monitor BP -protonix 40 IV BID #Troponinemia: based on fast peak in setting of anemia and GI bleeding, suspect this could be demand cardiac ischemia -EKG NSR with prolonged QT (497), repeat showed sinus rhythm with several premature atrial complexes and prolonged QT (503) -monitor on tele -trops peaked at 0.61 (0.63 -> 0.77 -> 0.61) -cardiology consulted -echo pending -careful with QT prolonging agents, decreased citalopram to 20mg, will need to follow with PCP/psychiatrist about dosing/medication regimen -aspirin given in ED, hold at present as patient is anemic and being worked up for GI bleed -per cardiology, plan for outpatient stress test #Prolonged QT: 503 on latest EKG -reduced dose of home citalopram to 20mg as a precaution, will need to follow with PCP/psychiatrist #Anemia: most likely this is a result of GI bleeding, back in 2017 hgb was normal. Iron deficiency suspected as TIBC -corrected retic count 2.16 -MCV high, RDW normal (does not suggest sole iron deficiency) -iron saturation is 15 -hemoglobin transfusion threshold 8 in GI bleed with concomitant coronary artery disease #Lactic Acidosis: likely 2/2 anemia and decreased tissue oxygenation/demand -resolved #Hypokalemia: 3.4 today -will replete with 40 PO KCl #Hypomagnesemia: slightly low today, replete with 1 gm IV #Atrial Fibrillation: currently in sinus rhythm -eliquis held due to GI bleed -continue metoprolol XL 50 BID #Hypertension: presented hypotensive, currently normotensive, would need careful BP monitoring on tele in setting of GI bleed -continue toprol XL 50 BID -continue HCTZ 12.5 daily #Hyperlipidemia: chronic -continue atorvastatin 40mg daily #FEN -will give 1 bag lactated ringers @ 100cc/hr for volume expansion, will reassess before bag finishes to see if rate needs adjustment/discontinuation of drip -NPO for now except meds -replete electrolytes #Prophylaxis -SCD prophylaxis in setting of GI bleed #Disposition -admit telemetry, anticipate DC in 72 hours if patient remains stable - patient may AMA Visit type - Emergency Visit Emergency Visit: No - New Patient This patient is new to me today: Yes Date on this admission: 07/01/19 - Critical Care Critical Care patient: No ATTENDING PHYSICIAN STATEMENT I saw and evaluated the patient. I reviewed the resident's note and discussed the case with the resident. I agree with the resident's findings and plan as documented. SUBJECTIVE: OBJECTIVE: ASSESSMENT AND PLAN:
[2019-07-01 09:08] LABS: RETICULOCYTES 3.63 % (0.5-1.5)
[2019-07-01] MEDS ORDERED: LACTATED RINGERS SOLUTION 1,000 ML/1,000 ML INFUS.BAG IV SCH (09:15)
--- NOTE | 2019-07-01 09:17 | CON.CARD ---
Cardiology Consult (text) - Consultation Consultation Note: Mr. Schwab is a patient of Dr. Nelson [facility]. I have notified our [facility] who will consult here. Patient is currently CP free and hemodynamically stable.
[2019-07-01] MEDS ORDERED: PANTOPRAZOLE SODIUM 40 MG VIAL IVPUSH SCH (10:00)
[2019-07-01] MEDS ORDERED: CITALOPRAM HYDROBROMIDE 20 MG TABLET PO SCH ×2 (10:00)
[2019-07-01] MEDS ORDERED: HYDROCHLOROTHIAZIDE 12.5 MG CAPSULE (FP) PO SCH (10:00)
--- NOTE | 2019-07-01 10:37 | EKG ---
Test Reason : Blood Pressure : / mmHG Vent. Rate : 063 BPM Atrial Rate : 063 BPM P-R Int : 186 ms QRS Dur : 090 ms QT Int : 486 ms P-R-T Axes : 001 003 023 degrees QTc Int : 497 ms POOR DATA QUALITY, INTERPRETATION MAY BE ADVERSELY AFFECTED NORMAL SINUS RHYTHM INCOMPLETE RBBB NO PREVIOUS ECGS AVAILABLE Confirmed by MICHELE MELO MD ([id number]) on 07/01/2019 10:36:56 AM Referred By: DR FINNEY Confirmed By:MICHELE MELO MD
--- NOTE | 2019-07-01 10:46 | PN ---
Progress Note (short form) - Note Progress Note: 73M w/ pmhx of CAD s/p bypass,2002 paroxysmal atrial flutter (on Eliquis),TAA 4 cm,last stress july 2018, prostate cancer (s/p RT now in remission), HTN/HLD presents to the ED for complaints of worsening dyspnea on exertion with cough and nasal congestion that have occurred concurrently. States he started noticing his symptoms on Thursday as he was walking up a hill to get into his house even though he was able to do this daily with no problem in the past. Also admits to generalized weakness x4 days. Of note, he states these symptoms started a day after having profuse bright red bloody diarrhea on Thursday. Says the bleeding started during the day and carried onto the night. Admits to hx of hemorrhoids in the past with bloody stool, but not as bad as Thursday's episode. Denies hx of anemia or ever needing blood transfusion in the past. On Thursday, he took an anti-diarrheal medication after which he hadn't had a bowel movement until today. Last BM today was normal brown stool, but 40 min later he had another episode of bright red diarrhea. Last colonoscopy was 2+ years ago that was negative, per patient. States he's gotten 3 total colonoscopies in the past - 2nd colonoscopy polyps were removed, but were apparent benign. 3rd colonoscopy, he had a hx of bloody stools, but he was told it was due to his hemorrhoids. Last endoscopy was also 2+ years ago at that same time after which he was told to take Prilosec. His GI doctor is Dr. Rush Cuevas ([facility]) He was started on Eliquis after his most recent endoscopy/colonoscopy for PAFl by his territory sales consultant, Dr. Nelson. ER course was notable for: (1) Afebrile, HR 123, BP 88/58 --> 105/68, 99% RA (2) H/H 9.2/28.5, Lac 2.2, TBili 1.2, AST/ALT 39/22, Trop 0.63. FOBT+ (3) ASA 325, Lipitor 80, NS given in ED. Cardio consulted. Recent Travel: Denies PAST MEDICAL HISTORY: As per HPI PAST SURGICAL HISTORY: CAB b/l arthroscopic knee sinus surgeries b/l cataract sx FAMILY HISTORY: Mother- breast cancer w/ lung mets Father- kidney ca Brother- prostate ca Brother- CAD No fam hx of [place]/stroke Social History: Smoking: Former smoker, quit 1978 Alcohol: Drinks ~2-3 glasses of vodka on the weekends Drugs: Denies Allergies cat dander Allergy (Verified 06/30/19 16:39) HOME MEDICATIONS: Home Medications - RECONCILED Generic Name Dose Route Start Last Admin Trade Name Freq PRN Reason Stop Dose Admin Atorvastatin Calcium 40 mg 07/01/19 00:31 Lipitor - PO HS [facility] Citalopram Hydrobromide 40 mg 07/01/19 10:00 Celexa - PO DAILY [facility] Hydrochlorothiazide 12.5 mg 07/01/19 10:00 Hctz - PO DAILY [facility] Metoprolol Succinate 50 mg 07/01/19 01:15 07/01/19 01:00 Toprol Xl - PO 50 mg BID [facility] Administration Mirtazapine 7.5 mg 07/01/19 01:06 07/01/19 01:49 Remeron - PO 7.5 mg HS [facility] Administration Non-Formulary Medication 25 mg 07/01/19 01:06 Mirabegron [Myrbetriq] PO DAILY [facility] Ramipril 5 mg 07/01/19 07:00 Altace - PO AM [facility] Tamsulosin HCl 0.4 mg 07/01/19 08:30 Flomax - PO DAILY@0830 [facility] REVIEW OF SYSTEMS negative except HHPI PHYSICAL EXAMINATION Vital Signs Temperature 98.3 F 07/01/19 06:00 Pulse Rate 59 L 07/01/19 06:00 Respiratory Rate 16 07/01/19 06:00 Blood Pressure 116/63 07/01/19 06:00 O2 Sat by Pulse Oximetry (%) 96 06/30/19 23:30 GENERAL: Pleasant, well-appearing male. NAD. AAOx3. HEENT: AT/NC. EOMI. MMM. NECK: Normal range of motion, supple without lymphadenopathy, JVD, or masses. LUNGS: CTA B/L. No wheezes or rales noted. Symmetric chest rise. HEART: RRR. Normal S1, S2. No murmurs noted. ABDOMEN: Soft, NT/ND. Normoactive bowel sounds in all 4Qs. GI: No palpable internal/external hemorrhoids on ASHANTI. No bloody stool noted. Normal rectal tone. MUSCULOSKELETAL: Normal range of motion at all joints. No bony deformities or tenderness. No CVA tenderness. EXTREMITIES: 1+ pitting edema noted on b/l extremities. 2+ dorsalis pedis pulses. NEUROLOGICAL: Cranial nerves II-XII intact. Normal speech. PSYCHIATRIC: Cooperative. Good eye contact. Appropriate mood and affect. SKIN: Warm, dry, normal turgor, no rashes or lesions noted, normal capillary refill. CBC, BMP 07/01/19 05:50 07/01/19 05:50 C ECG: NSR ASSESSMENT/PLAN: 73M w/ pmhx of CAD s/p bypass, PAFl (on Eliquis), prostate cancer (s/p RT now in remission), HTN/HLD presents to the ED for complaints of worsening dyspnea on exertion with cough admitted for tropinemia, r/o ACS #Tropinemia; likely 2/2 ? NSTEMI vs. demand ischemia, r/o ACS -No active chest pain. EKG showed NSR, QTc 503 ms, no ST-T changes or TWI -Initial trops 0.63 --> 0.77>>0.61 trending down; -ASA 325, Lipitor 80 given in ED -hb trending down now 8.2 from 9.2; transfuse if <8 -in NSR, no anticoagulation for now until source of anemia found and managed, if resolved then resume eliquis -will need a stress test as outpatient when no bleeding -Echo ordered -tele monitoring #Anemia; likely 2/2 GI bleed. No known hx of anemia. -FOBT positive, Hgb 9.2 --> 8.4>.8.2; cont to trend CBC and transfuse PRN if Hgb <8 -Hold home Eliquis in setting of GI bleed -GI consulted -Iron studies #Paroxysmal trial Flutter: now in NSR ; Rate-controlled and currently in NSR. HR 65 -Hold home Eliquis given GI bleed Cont home med: Metoprolol Succinate 50 BID #Hx of CAD; s/p CAB #HTN/HLD; Cont home med: Lipitor 40, Metoprolol Succinate 50 BID, HCTZ 12.5 QD, Ramipril 5,
--- NOTE | 2019-07-01 10:57 | ECHO ---
Name: ADAM HORN Exam:Adult Echocardiogram Study Date: 07/01/2019 09:08 AM Age: 73 yrs Height: 71 in Weight: 197 lb BSA: 2.1 m2 MMode/2D Measurements & Calculations IVSd: 1.1 cm Ao root diam: 3.6 cm LVIDd: 5.1 cm LA dimension: 5.4 cm LVIDs: 3.2 cm ACS: 1.9 cm LVPWd: 0.90 cm IVSs: 1.3 cm LVPWs: 1.3 cm EDV(Teich): 126.3 ml ESV(Teich): 41.2 ml Doppler Measurements & Calculations MV E max igor: 102.4 cm/sec Ao V2 max: 134.4 cm/sec MV A max igor: 50.3 cm/sec Ao max P.2 mmHg MV E/A: 2.0 TR max igor: 253.6 cm/sec Med Peak E' Igor: 9.0 cm/sec TR max P.9 mmHg Med E/e': 11.4 Lat Peak E' Igor: 9.8 cm/sec Lat E/e': 10.5 Procedure The study was technically difficult with many images being suboptimal in quality. Left Ventricle Left ventricular systolic function is grossly normal. Ejection Fraction = 55-60%. Regional wall motio n abnormalities cannot be excluded due to limited visualization. Right Ventricle The right ventricle is grossly normal size. The right ventricular systolic function is grossly normal . Atria The left atrium is moderately dilated. Right atrial size is normal. The interatrial septum is not wel l seen. Mitral Valve The mitral valve is normal in structure and function. There is no mitral valve stenosis. There is tra ce mitral regurgitation. Tricuspid Valve The tricuspid valve is normal in structure and function. There is mild tricuspid regurgitation. Right ventricular systolic pressure is normal. Aortic Valve There is moderate aortic sclerosis.;. No hemodynamically significant valvular aortic stenosis. No aor tic regurgitation is present. Pulmonic Valve The pulmonic valve is not well seen, but is grossly normal. There is no pulmonic valvular stenosis. T here is no pulmonic valvular regurgitation. Great Vessels The aortic root is normal size. The inferior vena cava is borderline dilated (2.5cm). Pericardium/Pleura There is no pericardial effusion. Interpretation Summary The study was technically difficult with many images being suboptimal in quality. Left ventricular systolic function is grossly normal. Ejection Fraction = 55-60%. The left atrium is moderately dilated. There is trace mitral regurgitation. There is mild tricuspid regurgitation. Right ventricular systolic pressure is normal. There is moderate aortic sclerosis.; No hemodynamically significant valvular aortic stenosis. There is no pericardial effusion. The inferior vena cava is borderline dilated (2.5cm). MD Cook *Abhay 07/01/2019 10:56 AM
--- NOTE | 2019-07-01 12:00 | CON.GI ---
Consult Consult Specialty:: GI Referred by:: Hospitalist service Reason for Consultation:: Rectal bleeding - History of Present Illness Chief Complaint: Rectal bleeding History of Present Illness: 73M admitted for evaluation of progressive weakness and dyspnea on exertion. States that last thursday he had persistent bright red rectal bleeding for about 11 hours. He did not seek medical attention at that point. He is on eliquis and continued it up until yesterday morning. He was noted to be anemic. He does not have a history of anemia. He receives all of his care at [facility] but was sent to [facility] from [place]. He was seen by a sales and marketing analyst here who suggested holding eliquis until source of bleeding identified. He believes that his last colonoscopy was 2 years ago and revealed internal hemorrhoids. he recall having had 2 other colonoscopies prior to that. he also had an upper endoscopy 2 years ago and that he was put on Prilosec There may have been polyps removed during the first colonoscopy. He denies any further bleeding aside from what occurred this past Thursday. He denied associated abdominal pain, nausea, vomiting. There is no history of colorectal cancer or other GI malignancy. He denies similar episodes of bleeding like this in the past. he drinks3-4 vodka drinks three times per week chronically. - History Source History Provided By: Patient, Medical Record Limitations to Obtaining History: No Limitations - Past Medical History Cardio/Vascular: Yes: AFIB, CAD, HTN, Hyperlipdemia Gastrointestinal: Yes: Other (Colon Polyps) Renal/: Yes: Other (prostate cancer s/p RT / Seed implantation) Additional Medical History: Phlebitis following knee surgeries bilaterally - Past Surgical History Past Surgical History: Yes: CABG (4 vessel, ) Additional Surgical History: Sinus surgery, b/l knee surgeries - Alcohol/Substance Use Hx Alcohol Use: No - Smoking History Smoking history: Former smoker Have you smoked in the past 12 months: No Aproximately how many cigarettes per day: 0 If you are a former smoker, when did you quit?: 1978 - Social History Usual Living Arrangement: Alone ADL: Independent Occupation: Retired Place of : [facility] History of Recent Travel: No Home Medications - Allergies Allergies/Adverse Reactions: Allergies Allergy/AdvReac Type Severity Reaction Status Date / Time cat dander Allergy Verified 06/30/19 16:39 - Home Medications Home Medications: Ambulatory Orders Atorvastatin Ca [Lipitor] 40 mg PO DAILY 03/20/12 Citalopram Hydrobromide [Celexa -] 40 mg PO DAILY 03/20/12 Ramipril 5 mg PO AM 11/03/13 Alfuzosin HCl [Uroxatral] 10 mg PO DAILY 11/21/14 Hydrochlorothiazide [Hctz -] 12.5 mg PO DAILY 11/21/14 Apixaban [Eliquis] 5 mg PO BID 11/17/17 Gluc Healy/Chondro Healy A/Vit C/Mn [Glucosamine Chondroitin Tab] 1 tab PO DAILY 07/01/19 Metoprolol Succinate 50 mg PO BID 07/01/19 Mirabegron [Myrbetriq] 25 mg PO DAILY 07/01/19 Mirtazapine [Remeron -] 7.5 mg PO HS 07/01/19 Multivitamins [Tab-A-Vit -] 1 tab PO DAILY 07/01/19 Naproxen Sodium 220 mg PO DAILY PRN MDD 220 mg 07/01/19 Family Medical History Other Family History: Mother: :56: BCA. Father: : 71: Kidney cancer. 4 brothers: 1 at home, unknown cause. 7 sisters: 1 : suicide. 2 daughters, 1 with learning disability, 1 son: healthy. No family history of colorectal cancer or other GI malignancy Review of Systems - Review of Systems Constitutional: denies: Chills Cardiovascular: denies: Chest Pain Respiratory: reports: SOB, SOB on Exertion Gastrointestinal: reports: Rectal Bleeding. denies: Abdominal Pain, C onstipation, Diarrhea, Vomiting, Vomiting Blood Physical Exam-GI Vital Signs: Vital Signs Temperature 98.3 F 07/01/19 06:00 Pulse Rate 59 L 07/01/19 06:00 Respiratory Rate 16 07/01/19 06:00 Blood Pressure 116/63 07/01/19 06:00 O2 Sat by Pulse Oximetry (%) 96 06/30/19 23:30 Constitutional: Yes: Calm Eyes: No: Sclera Icterus Cardiovascular: Yes: Regular Rate and Rhythm, Murmur (2/6 systolic murmur at RSB) Respiratory: Yes: CTA Bilaterally, Diminished Gastrointestinal Inspection: No: Distention, Scars ...Auscultate: Yes: Normoactive Bowel Sounds ...Palpate: Yes: Soft. No: Hepatomegaly, Splenomegaly, Tenderness ...Percussion: No: Tympanitic ...Rectal Exam: Yes: Other (No external lesions, no masses, coarse mucosa along anterior rectal wall, scant brown stool, no blood/melena) Edema: No (No LE edema) Neurological: Yes: Alert, Oriented Labs: CBC, BMP 07/01/19 05:50 07/01/19 05:50 INR, PTT INR 1.52 (0.82-1.09) H 06/30/19 17:45 Problem List - Problems (1) Rectal bleeding Assessment/Plan: Rectal bleeding that has resolved. explained that to safely restart his anticoagulation, cardiology would need to know potential source of bleeding and that colonoscopy could be undertaken to exclude potential source of bleeding such as diverticulosis, bleeding blood vessels, polyps, radiation proctitis, cancer as well as upper endoscopy (drinking history, elevated MCV and INR on admission) to exclude sequelae of alcoholic liver disease such as varices. We discussed potential risks of the procedure like but not limited to bleeding, perforation requiring srgery to repair, infection, sedation medication effects all of which could be potentially life threatening. Last dose of eliquis was yesterday so proposed procedures for Thursday. He stated that he wanted to discus things with ut sales and marketing analyst and pipe cutter Dr. Rush Torres and was not sure if he wanted to stay. Explained potentoial risk of CVA if off of A/C for prolonged period of time. If amenable to staying, plan for possible Colonoscopy/EGD Thursday while off A/C Monitor H/H and for signs of active bleeding. Keep Hgb >8 in setting of cardiac disease. Protonix 40mg daily Check screening hepatitis B/C serologies D/W hospitalist. Mr. Manriquez was leaning towards leaving and potentially signing out AMA Code(s): K62.5 - HEMORRHAGE OF ANUS AND RECTUM
--- NOTE | 2019-07-01 14:49 | PN ---
Teaching Attending Note Name of Resident: Marty Carreon ATTENDING PHYSICIAN STATEMENT I saw and evaluated the patient. I reviewed the resident's note and discussed the case with the resident. I agree with the resident's findings and plan as documented. SUBJECTIVE: Patient seen and examined at beside, denies further bleeding, endorses chronic h/o hemorrhoids, also ?taking Naproxen as per med list, wants to go home leaning towards signing out AMA despite extensive conversation to stay. VS otherwise stable, H/H stable. Objective: GENERAL: AAox3, speaking in full sentences, NAD EYES: PERRLA, EOMI ENT: Moist mucus membranes, oropharynx normal without erythema LUNGS: CTA, no wheezes HEART: RRR, no murmurs ABDOMEN: Soft, nontender, BS present EXTREMITIES: 2+ pulses, no edema. NEUROLOGICAL: Cranial nerves II-XII intact. no focal deficits, good affect. Vital Signs - 24 hr 06/30/19 06/30/19 06/30/19 16:38 18:03 20:40 Temperature 98.2 F 98.3 F 97.8 F Pulse Rate 123 H Pulse Rate [ 64 68 Left Apical] Respiratory 20 18 18 Rate Blood Pressure 88/58 L Blood Pressure 105/68 111/54 L [Left Arm] O2 Sat by Pulse 97 99 97 Oximetry (%) 06/30/19 06/30/19 06/30/19 20:41 21:53 23:30 Temperature 97.8 F 98.4 F 97.9 F Pulse Rate 68 62 Pulse Rate [ 61 Left Apical] Respiratory 18 18 18 Rate Blood Pressure 111/54 L 132/82 Blood Pressure 119/71 [Left Arm] O2 Sat by Pulse 98 96 Oximetry (%) 07/01/19 07/01/19 07/01/19 02:00 06:00 09:00 Temperature 98.2 F 98.3 F Pulse Rate 71 59 L Pulse Rate [ Left Apical] Respiratory 18 16 16 Rate Blood Pressure 102/58 L 116/63 Blood Pressure [Left Arm] O2 Sat by Pulse 96 Oximetry (%) 07/01/19 10:00 Temperature 98 F Pulse Rate 61 Pulse Rate [ Left Apical] Respiratory 16 Rate Blood Pressure 119/65 Blood Pressure [Left Arm] O2 Sat by Pulse Oximetry (%) Laboratory Results - last 24 hr 06/30/19 06/30/19 06/30/19 16:45 16:45 16:45 WBC 7.1 RBC 2.87 L Hgb 9.2 L Hct 28.5 L D MCV 99.2 H MCH 32.1 MCHC 32.4 RDW 12.1 Plt Count 260 D MPV 7.9 Absolute Neuts (auto) 4.1 Neutrophils % 57.3 Lymphocytes % 20.5 Monocytes % 17.2 H Eosinophils % 4.4 Basophils % 0.6 Nucleated RBC % Retic Count PT with INR INR VBG pH 7.42 H POC VBG pCO2 40.7 POC VBG pO2 < 49 H VBG HCO3 26.2 VBG O2 Sat (Lyn) 71.7 VBG Base Excess 2.1 H Sodium 137 Potassium 4.1 Chloride 100 Carbon Dioxide 26 Anion Gap 11 BUN 21.0 H Creatinine 1.2 Est GFR (CKD-EPI)AfAm 68.63 Est GFR (CKD-EPI)NonAf 59.21 Random Glucose 109 H Lactic Acid Calcium 9.0 Phosphorus Magnesium Iron TIBC Iron Saturation Unsaturated IBC Ferritin Total Bilirubin 1.1 H AST 39 H ALT 22 Alkaline Phosphatase 49 Troponin I Total Protein 6.9 Albumin 3.8 Vitamin B12 Serum Folate Stool Occult Blood Influenza A (Rapid) Influenza B (Rapid) Blood Type Antibody Screen 06/30/19 06/30/19 06/30/19 16:45 16:45 17:30 WBC RBC Hgb Hct MCV MCH MCHC RDW Plt Count MPV Absolute Neuts (auto) Neutrophils % Lymphocytes % Monocytes % Eosinophils % Basophils % Nucleated RBC % Retic Count PT with INR INR VBG pH POC VBG pCO2 POC VBG pO2 VBG HCO3 VBG O2 Sat (Lyn) VBG Base Excess Sodium Potassium Chloride Carbon Dioxide Anion Gap BUN Creatinine Est GFR (CKD-EPI)AfAm Est GFR (CKD-EPI)NonAf Random Glucose Lactic Acid 2.2 H* Calcium Phosphorus Magnesium Iron TIBC Iron Saturation Unsaturated IBC Ferritin Total Bilirubin AST ALT Alkaline Phosphatase Troponin I 0.63 H* Total Protein Albumin Vitamin B12 Serum Folate Stool Occult Blood Influenza A (Rapid) Negative Influenza B (Rapid) Negative Blood Type Antibody Screen 06/30/19 06/30/19 06/30/19 17:45 18:10 18:20 WBC RBC Hgb Hct MCV MCH MCHC RDW Plt Count MPV Absolute Neuts (auto) Neutrophils % Lymphocytes % Monocytes % Eosinophils % Basophils % Nucleated RBC % Retic Count PT with INR 16.9 H INR 1.52 H VBG pH POC VBG pCO2 POC VBG pO2 VBG HCO3 VBG O2 Sat (Lyn) VBG Base Excess Sodium Potassium Chloride Carbon Dioxide Anion Gap BUN Creatinine Est GFR (CKD-EPI)AfAm Est GFR (CKD-EPI)NonAf Random Glucose Lactic Acid Calcium Phosphorus Magnesium Iron TIBC Iron Saturation Unsaturated IBC Ferritin Total Bilirubin AST ALT Alkaline Phosphatase Troponin I Total Protein Albumin Vitamin B12 Serum Folate Stool Occult Blood Positive Influenza A (Rapid) Influenza B (Rapid) Blood Type A POSITIVE Antibody Screen Negative 06/30/19 06/30/19 07/01/19 18:22 20:45 00:05 WBC RBC Hgb Hct MCV MCH MCHC RDW Plt Count MPV Absolute Neuts (auto) Neutrophils % Lymphocytes % Monocytes % Eosinophils % Basophils % Nucleated RBC % Retic Count PT with INR INR VBG pH POC VBG pCO2 POC VBG pO2 VBG HCO3 VBG O2 Sat (Lyn) VBG Base Excess Sodium Potassium Chloride Carbon Dioxide Anion Gap BUN Creatinine Est GFR (CKD-EPI)AfAm Est GFR (CKD-EPI)NonAf Random Glucose Lactic Acid 1.0 Calcium Phosphorus Magnesium Iron TIBC Iron Saturation Unsaturated IBC Ferritin Total Bilirubin AST ALT Alkaline Phosphatase Troponin I 0.77 H* Total Protein Albumin Vitamin B12 Serum Folate Stool Occult Blood Influenza A (Rapid) Influenza B (Rapid) Blood Type A POSITIVE Antibody Screen 07/01/19 07/01/19 07/01/19 00:05 05:50 05:50 WBC 7.0 6.4 RBC 2.48 L 2.48 L Hgb 8.4 L 8.2 L Hct 24.5 L 24.6 L MCV 99.0 H 99.5 H MCH 33.9 H 33.3 MCHC 34.2 33.4 RDW 12.9 13.3 Plt Count 198 199 MPV 8.1 8.1 Absolute Neuts (auto) 3.5 Neutrophils % 54.5 Lymphocytes % 23.6 Monocytes % 15.5 H Eosinophils % 5.9 H Basophils % 0.5 Nucleated RBC % 0 Retic Count 3.63 H PT with INR INR VBG pH POC VBG pCO2 POC VBG pO2 VBG HCO3 VBG O2 Sat (Lyn) VBG Base Excess Sodium 141 Potassium 3.4 L Chloride 107 Carbon Dioxide 25 Anion Gap 9 BUN 16.7 Creatinine 1.0 Est GFR (CKD-EPI)AfAm 85.55 Est GFR (CKD-EPI)NonAf 73.82 Random Glucose 81 Lactic Acid Calcium 8.0 L Phosphorus 4.0 Magnesium 1.7 L Iron TIBC Iron Saturation Unsaturated IBC Ferritin Total Bilirubin 0.9 AST 30 ALT 21 Alkaline Phosphatase 49 Troponin I Total Protein 5.8 L Albumin 2.9 L Vitamin B12 Serum Folate Stool Occult Blood Influenza A (Rapid) Influenza B (Rapid) Blood Type Antibody Screen 07/01/19 07/01/19 07/01/19 05:50 05:50 05:50 WBC RBC Hgb Hct MCV MCH MCHC RDW Plt Count MPV Absolute Neuts (auto) Neutrophils % Lymphocytes % Monocytes % Eosinophils % Basophils % Nucleated RBC % Retic Count PT with INR INR VBG pH POC VBG pCO2 POC VBG pO2 VBG HCO3 VBG O2 Sat (Lyn) VBG Base Excess Sodium Potassium Chloride Carbon Dioxide Anion Gap BUN Creatinine Est GFR (CKD-EPI)AfAm Est GFR (CKD-EPI)NonAf Random Glucose Lactic Acid Calcium Phosphorus Magnesium Iron 45 L TIBC 292 Iron Saturation 15 L Unsaturated IBC 247 Ferritin 52.5 Total Bilirubin AST ALT Alkaline Phosphatase Troponin I 0.61 H* Total Protein Albumin Vitamin B12 436 Serum Folate 30 H Stool Occult Blood Influenza A (Rapid) Influenza B (Rapid) Blood Type Antibody Screen Home Medications Medication Instructions Recorded Atorvastatin Ca [Lipitor] 40 mg PO DAILY 03/20/12 Citalopram Hydrobromide [Celexa -] 40 mg PO DAILY 03/20/12 Ramipril 5 mg PO AM 11/03/13 Alfuzosin HCl [Uroxatral] 10 mg PO DAILY 11/21/14 Hydrochlorothiazide [Hctz -] 12.5 mg PO DAILY 11/21/14 Apixaban [Eliquis] 5 mg PO BID 11/17/17 Gluc Healy/Chondro Healy A/Vit C/Mn 1 tab PO DAILY 07/01/19 [Glucosamine Chondroitin Tab] Metoprolol Succinate 50 mg PO BID 07/01/19 Mirabegron [Myrbetriq] 25 mg PO DAILY 07/01/19 Mirtazapine [Remeron -] 7.5 mg PO HS 07/01/19 Multivitamins [Tab-A-Vit -] 1 tab PO DAILY 07/01/19 Naproxen Sodium 220 mg PO DAILY PRN MDD 220 mg 07/01/19 Current Medications Generic Name Dose Route Start Last Admin Trade Name Freq PRN Reason Stop Dose Admin Atorvastatin Calcium 40 mg 07/01/19 00:31 Lipitor - PO HS AZUL Citalopram Hydrobromide 20 mg 07/01/19 10:00 07/01/19 10:08 Celexa - PO 20 mg DAILY AZUL Administration Hydrochlorothiazide 12.5 mg 07/01/19 10:00 07/01/19 10:08 Hctz - PO 12.5 mg DAILY AZUL Administration Lactated Ringer's 1,000 ml in 1,000 mls @ 100 mls/hr 07/01/19 09:15 07/01/19 10:11 Lactated Ringers Solution IV 07/01/19 19:14 100 mls/hr ASDIR AZUL Administration Metoprolol Succinate 50 mg 07/01/19 01:15 07/01/19 10:07 Toprol Xl - PO 50 mg BID AZUL Administration Mirtazapine 7.5 mg 07/01/19 01:06 07/01/19 01:49 Remeron - PO 7.5 mg HS AZUL Administration Non-Formulary Medication 25 mg 07/01/19 01:06 Mirabegron [Myrbetriq] PO DAILY AZUL Pantoprazole Sodium 40 mg 07/01/19 10:00 07/01/19 10:07 Protonix Iv IVPUSH 40 mg BID AZUL Administration Ramipril 5 mg 07/01/19 07:00 07/01/19 06:36 Altace - PO 5 mg AM AZUL Administration Tamsulosin HCl 0.4 mg 07/01/19 08:30 07/01/19 10:07 Flomax - PO 0.4 mg DAILY@0830 AZUL Administration 73 M h/o CAD s/p CABG (no stents), Afib on Eliquis, prostate ca s/p RT 7-8 years ago, HTN, HLD who presents with symptomatic anemia. Symptomatic anemia drop of Hgb from 14 (2018) to 8 at admission, likely 2/2 ?hemorrhoidal/radiation proctitis bleed/?cancer, no further bleeding today hold AC, hold NSAIDs (including Naproxen he was likely taking as per med list), GI planning on EGD/colonsocopy for Thursday or earlier if further bleeding ensues, however patient wants to go home to take care of his dog and follow up with Dr. Nelson (cylinder press operator helper) and Dr. Torres (GI). Cont. to monitor H/H daily, monitor VS, cont. tele Troponemia improving, likely 2/2 demand ischemia no signs or concern for ACS, EKG unremarkable no CP/SOB currently, SOB on exertion is related to his anemia give Mg, repeat EKG for monitoring of QTc, avoid further QTc prolonging agents, Keep K >4 Anemia likely 2/2 GI loss and being on AC/Naproxen EGD/colon planned for Thursday however patient refusing to stay that long, leaning to sign AMA Ferrous sulfate/Vit C BID Hypokalemia repalce to achieve K >4 Hypomagnesemia replace aggressively and monitor, ?Etoh related Afib on Eliquis hold AC, rate controlled cont. BB Cardiology evaluation HTN cont. BP meds as tolerated HLD cont. statin Tele monitoring DVT ppx: SCD/ALKE ?Dispo:AMA will follow
--- NOTE | 2019-07-01 15:17 | DS ---
Physical Exam: Laboratory Last Values WBC 6.4 K/mm3 (4.0-10.0) 07/01/19 05:50 RBC 2.48 M/mm3 (4.00-5.60) L 07/01/19 05:50 Hgb 8.2 GM/dL (11.7-16.9) L 07/01/19 05:50 Hct 24.6 % (35.4-49) L 07/01/19 05:50 MCV 99.5 fl (80-96) H 07/01/19 05:50 MCH 33.3 pg (25.7-33.7) 07/01/19 05:50 MCHC 33.4 g/dl (32.0-35.9) 07/01/19 05:50 RDW 13.3 % (11.9-15.9) 07/01/19 05:50 Plt Count 199 K/MM3 (134-434) 07/01/19 05:50 MPV 8.1 fl (7.5-11.1) 07/01/19 05:50 Absolute Neuts (auto) 3.5 K/mm3 (1.5-8.0) 07/01/19 05:50 Neutrophils % 54.5 % (42.8-82.8) 07/01/19 05:50 Lymphocytes % 23.6 % (8-40) 07/01/19 05:50 Monocytes % 15.5 % (3.8-10.2) H 07/01/19 05:50 Eosinophils % 5.9 % (0-4.5) H 07/01/19 05:50 Basophils % 0.5 % (0-2.0) 07/01/19 05:50 Nucleated RBC % 0 % (0-0) 07/01/19 05:50 Retic Count 3.63 % (0.5-1.5) H 07/01/19 05:50 PT with INR 16.9 SEC (10.2-13.0) H 06/30/19 17:45 INR 1.52 (0.82-1.09) H 06/30/19 17:45 VBG pH 7.42 (7.31-7.41) H 06/30/19 16:45 POC VBG pCO2 40.7 mmHg (38-52) 06/30/19 16:45 POC VBG pO2 < 49 mmHg (28-48) H 06/30/19 16:45 VBG HCO3 26.2 mmol/L (23-29) 06/30/19 16:45 VBG O2 Sat (Lyn) 71.7 % (70-80) 06/30/19 16:45 VBG Base Excess 2.1 meq/l (-2-2) H 06/30/19 16:45 Sodium 141 mmol/L (136-145) 07/01/19 05:50 Potassium 3.4 mmol/L (3.5-5.1) L 07/01/19 05:50 Chloride 107 mmol/L (98-107) 07/01/19 05:50 Carbon Dioxide 25 mmol/L (21-32) 07/01/19 05:50 Anion Gap 9 MMOL/L (8-16) 07/01/19 05:50 BUN 16.7 mg/dL (7-18) 07/01/19 05:50 Creatinine 1.0 mg/dL (0.55-1.3) 07/01/19 05:50 Est GFR (CKD-EPI)AfAm 85.55 07/01/19 05:50 Est GFR (CKD-EPI)NonAf 73.82 07/01/19 05:50 Random Glucose 81 mg/dL (74-106) 07/01/19 05:50 Lactic Acid 1.0 mmol/L (0.4-2.0) 06/30/19 20:45 Calcium 8.0 mg/dL (8.5-10.1) L 07/01/19 05:50 Phosphorus 4.0 mg/dL (2.5-4.9) 07/01/19 05:50 Magnesium 1.7 mg/dL (1.8-2.4) L 07/01/19 05:50 Iron 45 ug/dL (50-175) L 07/01/19 05:50 TIBC 292 ug/dL (250-450) 07/01/19 05:50 Iron Saturation 15 % (17.5-39) L 07/01/19 05:50 Unsaturated IBC 247 ug/dL (200-275) 07/01/19 05:50 Ferritin 52.5 ng/ml (8-388) 07/01/19 05:50 Total Bilirubin 0.9 mg/dL (0.2-1) 07/01/19 05:50 AST 30 U/L (15-37) 07/01/19 05:50 ALT 21 U/L (13-61) 07/01/19 05:50 Alkaline Phosphatase 49 U/L (45-117) 07/01/19 05:50 Troponin I 0.61 ng/ml (0.00-0.05) H* 07/01/19 05:50 Total Protein 5.8 g/dl (6.4-8.2) L 07/01/19 05:50 Albumin 2.9 g/dl (3.4-5.0) L 07/01/19 05:50 Vitamin B12 436 pg/ml (193-986) 07/01/19 05:50 Serum Folate 30 ng/mL (3.1-17.5) H 07/01/19 05:50 Stool Occult Blood Positive (NEGATIVE) 07/01/19 11:00 Influenza A (Rapid) Negative (Negative) 06/30/19 17:30 Influenza B (Rapid) Negative (Negative) 06/30/19 17:30 Blood Type A POSITIVE 06/30/19 18:22 Antibody Screen Negative 06/30/19 18:20 See recent progress note for today's history and physical exam. Also listed below. HOSPITAL COURSE: Date of Admission:06/30/19 73 year old male with a history of coronary artery disease s/p 4 vessel CABG, atrial fibrillation on eliquis, prostate cancers s/p radiation therapy 7-8 years ago, hypertension and hyperlipidemia stated that he has been feeling fatigued for around 1 week with reported dyspnea on exertion. States that he has had several episodes of bloody bowel movements over the course of this week starting Thursday. Last episode being yesterday. Patient told me he had a colonoscopy around 2 years ago and that he has known hemorrhoids. He was told he had bleeding hemorrhoids in the past. Denied chest pain, SOB, nausea, vomiting, diarrhea, fevers, chills. Patient does endorse a mild non-productive cough. Patient had EKG that was unremarkable and troponins that were elevated to 0.61, peaked at 0.77. Eliquis was stopped, he was kept NPO, he was resuscitated with IVF. Given protonix 40 IV. GI evaluated patient and recommended continual monitoring until colonoscopy on Thursday. Cardiology suggested outpatient stress test for elevated troponins. Patient stated to me that he wanted to leave against medical advice in order to take care of his dog and did not want to wait until thursday. I advised him against leaving due to the significant drop in hemoglobin and risk of taking eliquis while bleeding. He understood that there is a risk of further bleeding, stroke (off eliquis), and , and decided to leave AMA. I prescribed him 40 of pantoprazole to take home and advised him to see his doctors as soon as he could. MOST RECENT PROGRESS NOTE PRIOR TO THE AMA #Lower Gastrointestinal Bleed: likely hemorrhoidal source as per patient history, however patient is now anemic with signs of cardiac demand ischemia -last colonoscopy 2 years ago, history of hemorrhoids -keep NPO except sips of water with meds -hold anticoagulation at present moment -would opt to keep transfusion threshold >8g/dl as patient has concomitant stable coronary artery disease -lactated ringers @ 100cc/hr 1 bag for volume -GI consulted, plan for endoscopy thursday -hold eliquis for now -continue to monitor hgb once today and again tomorrow AM -monitor BP -protonix 40 IV BID #Troponinemia: based on fast peak in setting of anemia and GI bleeding, suspect this could be demand cardiac ischemia -EKG NSR with prolonged QT (497), repeat showed sinus rhythm with several premature atrial complexes and prolonged QT (503) -monitor on tele -trops peaked at 0.61 (0.63 -> 0.77 -> 0.61) -cardiology consulted -echo pending -careful with QT prolonging agents, decreased citalopram to 20mg, will need to follow with PCP/psychiatrist about dosing/medication regimen -aspirin given in ED, hold at present as patient is anemic and being worked up for GI bleed -per cardiology, plan for outpatient stress test #Prolonged QT: 503 on latest EKG -reduced dose of home citalopram to 20mg as a precaution, will need to follow with PCP/psychiatrist #Anemia: most likely this is a result of GI bleeding, back in 2017 hgb was norm al. Iron deficiency suspected as TIBC -corrected retic count 2.16 -MCV high, RDW normal (does not suggest sole iron deficiency) -iron saturation is 15 -hemoglobin transfusion threshold 8 in GI bleed with concomitant coronary artery disease #Lactic Acidosis: likely 2/2 anemia and decreased tissue oxygenation/demand -resolved #Hypokalemia: 3.4 today -will replete with 40 PO KCl #Hypomagnesemia: slightly low today, replete with 1 gm IV #Atrial Fibrillation: currently in sinus rhythm -eliquis held due to GI bleed -continue metoprolol XL 50 BID #Hypertension: presented hypotensive, currently normotensive, would need careful BP monitoring on tele in setting of GI bleed -continue toprol XL 50 BID -continue HCTZ 12.5 daily #Hyperlipidemia: chronic -continue atorvastatin 40mg daily #FEN -will give 1 bag lactated ringers @ 100cc/hr for volume expansion, will reassess before bag finishes to see if rate needs adjustment/discontinuation of drip -NPO for now except meds -replete electrolytes #Prophylaxis -SCD prophylaxis in setting of GI bleed #Disposition -admit telemetry, anticipate DC in 72 hours if patient remains stable - patient may AMA Date of Discharge: 07/01/19 Minutes to complete discharge: 35 Discharge Summary Problems reviewed: Yes Reason For Visit: NSTEMI Current Active Problems Anemia (Acute) NSTEMI (non-ST elevated myocardial infarction) (Acute) Rectal bleeding (Acute) Condition: Guarded - Instructions - Home Medications Comprehensive Discharge Medication List: Ambulatory Orders Atorvastatin Ca [Lipitor] 40 mg PO DAILY 03/20/12 Citalopram Hydrobromide [Celexa -] 40 mg PO DAILY 03/20/12 Ramipril 5 mg PO AM 11/03/13 Alfuzosin HCl [Uroxatral] 10 mg PO DAILY 11/21/14 Hydrochlorothiazide [Hctz -] 12.5 mg PO DAILY 11/21/14 Apixaban [Eliquis] 5 mg PO BID 11/17/17 Gluc Healy/Chondro Healy A/Vit C/Mn [Glucosamine Chondroitin Tab] 1 tab PO DAILY 07/01/19 Metoprolol Succinate 50 mg PO BID 07/01/19 Mirabegron [Myrbetriq] 25 mg PO DAILY 07/01/19 Mirtazapine [Remeron -] 7.5 mg PO HS 07/01/19 Multivitamins [Tab-A-Vit -] 1 tab PO DAILY 07/01/19 Naproxen Sodium 220 mg PO DAILY PRN MDD 220 mg 07/01/19 This patient is new to me today: Yes Date on this admission: 07/01/19 Emergency Visit: No Critical Care patient: No - Discharge Referral Referred to [facility] No ATTENDING PHYSICIAN STATEMENT I saw and evaluated the patient. I reviewed the resident's note and discussed the case with the resident. I agree with the resident's findings and plan as documented. SUBJECTIVE: OBJECTIVE: ASSESSMENT AND PLAN:
[2019-07-01 15:40] VITALS: BP 116/48; PULSE 66; TEMP 98.2
--- NOTE | 2019-07-02 11:28 | EKG ---
Test Reason : Blood Pressure : / mmHG Vent. Rate : 065 BPM Atrial Rate : 065 BPM P-R Int : 180 ms QRS Dur : 090 ms QT Int : 484 ms P-R-T Axes : 014 003 016 degrees QTc Int : 503 ms SINUS RHYTHM WITH PREMATURE ATRIAL COMPLEXES WITH ABERRANT CONDUCTION PROLONGED QT ABNORMAL ECG WHEN COMPARED WITH ECG OF 30-JUN-2019 17:44, ABERRANT CONDUCTION IS NOW PRESENT Confirmed by MD Jeremias, Dmitri ([id number]) on 07/02/2019 11:28:17 AM Referred By: Confirmed By:Dmitri Mcdowell MD
== END 2019-07-01 16:32 | disposition left against medical advice (07) | DRG 378 ==
LOC: FER 16:38 → J4S 21:38
PROVIDERS: ADMIT Internal Medicine
DX: K92.2 Gastrointestinal hemorrhage, unspecified (principal); E87.2 Acidosis; I48.92 Unspecified atrial flutter; I24.8 Other forms of acute ischemic heart disease; D64.9 Anemia, unspecified; I25.10 Atherosclerotic heart disease of native coronary artery without angina pectoris; I48.91 Unspecified atrial fibrillation; I10 Essential (primary) hypertension; E78.5 Hyperlipidemia, unspecified; E87.6 Hypokalemia; Z95.1 Presence of aortocoronary bypass graft; E83.42 Hypomagnesemia
CPT/HCPCS: 36415; 71045-TC-FY; 80053; 81003; 82272; 82607; 82728; 82746; 82803; 83540; 83550; 83605; 83735; 84100; 84484; 85025; 85027; 85044; 85610; 86850; 86900; 86901; 87040; 87086; 87804; 93005; 93010; 93306-TC; 99285-25; J7030

== ENCOUNTER 2020-04-19 15:00 | Emergency (ER) | payer BC | END 2020-04-19 15:38 | disposition home or self-care (01) | LOC: JVIRT 15:00 | DX: Z03.818 Encounter for observation for suspected exposure to other biological agents ruled out (principal) | CPT/HCPCS: C9803; Q3014-GT; U0003 ==

== ENCOUNTER 2020-12-20 10:42 | Emergency (ER) | payer BC ==
[2020-12-20 11:30] VITALS: BP 169/97; PULSE 49; TEMP 97.5; BMI 26.2
[2020-12-20 12:06] LABS: BASO % 1.5 % (0-2.0); EOS % 1.9 % (0-4.5); HEMATOCRIT 34.6 % (35.4-49); HEMOGLOBIN 11.5 GM/dl (11.7-16.9); LYMPH % 28.1 % (8-40); MCH 32.6 pg (25.7-33.7); MCHC 33.1 g/dl (32.0-35.9); MEAN CELL VOLUME 98.3 fl (80-96); MEAN PLT VOLUME 6.9 fl (7.5-11.1); MONO % 14.6 % (3.8-10.2); NEUT % 53.9 % (42.8-82.8); PLATELET COUNT 215 10^3/uL (134-434); RBC 3.52 M/mm3 (4.00-5.60); RDW 13.5 % (11.9-15.9); WHITE BLOOD COUNT 5.4 K/mm3 (4.0-10.8)
[2020-12-20 12:09] LABS: ACTIVATED PTT 31.3 SECONDS (25.2-36.5); INR 1.24 (0.82-1.09); PROTHROMBIN TIME (PATIENT) 13.7 SEC (10.2-13.0)
[2020-12-20 12:13] LABS: ALBUMIN 3.4 g/dl (3.4-5.0); BILIRUBIN,TOTAL 0.8 mg/dl (0.2-1); CALCIUM 8.5 mg/dl (8.5-10); CREATININE 0.9 mg/dl (0.55-1.3); MAGNESIUM 1.7 mg/dL (1.8-2.4)
== END 2020-12-20 13:10 | disposition home or self-care (01) ==
LOC: FER 10:42
DX: R41.82 Altered mental status, unspecified (principal); F10.10 Alcohol abuse, uncomplicated
CPT/HCPCS: 36415; 70450-TC; 71045-TC-FY; 80053; 80307; 82550; 82962; 83735; 84484; 85025; 85610; 85730; 93005; 99285-25